=== PATIENT | male | born 1995 | race Caucasian/White ===

== ENCOUNTER 2024-02-10 15:50 | Emergency (ER) | payer OTHER ==
[2024-02-10 18:12] VITALS: TEMP 99.7
[2024-02-10 19:10] LABS: Absolute Neutrophil Ct (ANC) 9.36 x10^3/uL (1.78-5.38); BASOPHIL % 0.2 % (0.2-1.2); Basophil (Absolute #) 0.02 x10^3/uL (0.01-0.08); Eosinophil % 0.1 % (0.8-7.0); Eosinophil (Absolute #) 0.01 x10^3/uL (0.04-0.54); Hematocrit 47.9 % (40.1-51.0); Hemoglobin 15.7 g/dL (13.7-17.5); IMMATURE GRAN # 0.04 x10^3u/L (0.001-0.031); IMMATURE GRAN % 0.4 % (0.001-0.429); Lymphocyte (Absolute #) 0.47 x10^3/uL (1.32-3.57); Lymphocytes % 4.5 % (21.8-53.1); Mean Cell Volume 83.3 fL (79.0-92.2); Mean Corpuscular Hemoglobin 27.3 pg (25.7-32.2); Mean Corpuscular Hgb Concent. 32.8 g/dL (32.3-36.5); Mean Platelet Volume 9.9 fL (9.4-12.4); Monocyte (Absolute #) 0.53 x10^3/uL (0.30-0.82); Monocytes % 5.1 % (5.3-12.2); Neutrophil % 89.7 % (34.0-67.9); Platelet Count 231 x10^3/uL (163-337); Red Blood Count 5.75 x10^6/uL (4.63-6.08); Red Cell Distribution Width 13.2 % (11.6-14.4); White Blood Count 10.4 x10^3/uL (4.23-9.07)
[2024-02-10 19:23] LABS: ALBUMIN 4.7 g/dL (3.5-5.0); ANION GAP 12.4 MEQ/L (5-15); BILIRUBIN,TOTAL 1.1 mg/dL (0.2-1.3); Calcium 9.4 mg/dL (8.4-10.2); Creatinine 1 0.94 mg/dL (0.66-1.25); EST GLOMERULAR FILTRATION RATE 112.5 ML/MIN; Potassium 3.7 mmol/L (3.5-5.1)
--- NOTE | 2024-02-10 20:15 | ERPHSYRPT ---
- History of Present Illness Time Seen by Provider: 02/10/24 16:21 Source: patient Exam Limitations: no limitations Patient Subjective Stated Complaint: C/O Vomiting since early this am; unsure of exact time. Reports coffee ground emesis. Denies any pain. Denies any change in bowel habits; no BM today. Triage Nursing Assessment: Patient ambulated back to ER. He is alert and oriented. Flushed. Warm to touch. No SOB. NO cough. Lips are dry. RAMACHANDRAN WNL. No active vomiting during assessment. Physician History: Patient is a 29-year-old male with no significant past medical history presents to our ED for evaluation of generalized bodyaches nausea and vomiting. Symptoms started this morning at approximately 5 AM. Patient has been vomiting since his arrival at 2 PM. Patient complains of generalized abdominal pain. No trauma no fever no diarrhea no rash. No chest pain or shortness of breath. No diaphoresis. Patient reports seeing "coffee-ground emesis". Patient did not appear to be an extremis. He is resting comfortably. Father at bedside. They voiced no other complaints or concerns at this time. Portions of this note were created with voice recognition technology. There may be grammatical, spelling, punctuation or sound alike errors Timing/Duration: today Severity: moderate Modifying Factors: Improves With: nothing Associated Symptoms: denies symptoms Allergies/Adverse Reactions: No Known Drug Allergies Allergy (Verified 02/10/24 18:03) Home Medications: Secukinumab [Cosentyx Unoready Pen] 300 mg IM Q30D 02/10/24 [History] Hx Tetanus, Diphtheria Vaccination/Date Given: Yes Hx Influenza Vaccination/Date Given: No Immunizations Up to Date: Yes Travel Risk - International Travel Have you traveled outside of the country in past 3 weeks: No - Emerging Infectious Disease Are you exhibiting symptoms associated with any current EIDs: Yes Symptoms: Fever, Vomitting - Review of Systems Constitutional: No Symptoms, No Fever, No Chills Eyes: No Symptoms Ears, Nose, & Throat: No Symptoms Respiratory: No Symptoms, No Cough, No Dyspnea Cardiac: No Symptoms, No Chest Pain, No Edema, No Syncope Abdominal/Gastrointestinal: No Symptoms, No Abdominal Pain, No Nausea, No Vomiting, No Diarrhea Genitourinary Symptoms: No Symptoms, No Dysuria Musculoskeletal: No Symptoms, No Back Pain, No Neck Pain Skin: No Symptoms, No Rash Neurological: No Symptoms, No Dizziness, No Focal Weakness, No Sensory Changes Psychological: No Symptoms Endocrine: No Symptoms Hematologic/Lymphatic: No Symptoms Immunological/Allergic: No Symptoms All Other Systems: Reviewed and Negative - Past Medical History Pertinent Past Medical History: Yes Musculoskeletal History: Arthritis Other Medical History: psoriasis - Past Surgical History Past Surgical History: No - Social History Smoking Status: Never smoker Exposure to second hand smoke: No Drug Use: none - Social Determinants of Health Will the patient participate in the screening: Yes Do you worry about a steady place to live?: No Do you have any problems with any of the following?: No known problems In the past 12 months,have you had to go without utilities?: No Transportation Issues: No Has anyone in your support network made you feel unsafe?: No Have you or anyone in your house had to go without enough: No - Nursing Vital Signs Nursing Vital Signs: Initial Vital Signs Pulse Rate 112 H 02/10/24 18:02 Respiratory Rate 7 L 02/10/24 18:02 Blood Pressure 139/77 02/10/24 18:02 O2 Sat by Pulse Oximetry 100 02/10/24 18:02 Pain Scale Pain Intensity 0 - Physical Exam General Appearance: no apparent distress, alert Eye Exam: PERRL/EOMI, eyes nml inspection Ears, Nose, Throat Exam: normal ENT inspection, TMs normal, pharynx normal, moist mucous membranes Neck Exam: normal inspection, non-tender, supple, full range of motion Respiratory Exam: normal breath sounds, lungs clear, No respiratory distress Cardiovascular Exam: regular rate/rhythm, normal heart sounds, normal peripheral pulses Gastrointestinal/Abdomen Exam: soft, normal bowel sounds, tenderness (Epigastric tenderness to palpation), No mass Back Exam: normal inspection, normal range of motion, No CVA tenderness, No vertebral tenderness Extremity Exam: normal inspection, normal range of motion, pelvis stable Neurologic Exam: alert, oriented x 3, cooperative, normal mood/affect, sensation nml, No motor deficits Skin Exam: normal color, warm, dry, No rash Lymphatic Exam: No adenopathy SpO2 Interpretation: normal SpO2: 98 O2 Delivery: Room Air - Course Nursing assessment & vital signs reviewed: Yes - CT Exams Abdomen/Pelvis CT Interpretation: Tele-radiologist Report (No comps fatty liver otherwise negative abdomen pelvis) Ordered Tests: Active Orders 24 hr Category Date Time Status IV Insertion STAT Care 02/10/24 20:11 Active ABDOMEN AND PELVIS W/0 CONTRAS [CT] Stat Exams 02/10/24 20:12 Taken AMYLASE Stat Lab 02/10/24 19:07 Completed CBC W DIFF Stat Lab 02/10/24 19:07 Completed CMP Stat Lab 02/10/24 19:07 Completed LIPASE Stat Lab 02/10/24 19:07 Completed TROPONIN Q4H Lab 02/10/24 19:00 Completed TROPONIN Q4H Lab 02/11/24 02:45 Ordered TROPONIN Q4H Lab 02/11/24 06:45 Ordered Medication Summary Discontinued Medications Generic Name Dose Route Start Last Admin Trade Name Freq PRN Reason Stop Dose Admin Al Hydrox/Mg Hydrox/Simethicone Confirm 02/10/24 20:40 Mag Hydrox/Al Hydrox/Simeth 30 Ml Udcup Administered 02/10/24 20:41 Dose 30 ml .ROUTE .STK-MED ONE Sodium Chloride 1,000 mls @ 999 mls/hr 02/10/24 20:11 02/10/24 22:14 Sodium Chloride 0.9% 1000 Ml IV 02/10/24 21:11 Infused .Q1H1M STA Infusion Sodium Chloride Confirm 02/10/24 20:40 Sodium Chloride 0.9% 1000 Ml Administered 02/10/24 20:41 Dose 1,000 mls @ ud .ROUTE .STK-MED ONE Lidocaine HCl Confirm 02/10/24 20:40 Lidocaine Hcl 2% Viscous 15 Ml Udcup Administered 02/10/24 20:41 Dose 15 ml .ROUTE .STK-MED ONE Magnesium Hydroxide 45 ml 02/10/24 20:14 02/10/24 20:50 Mag Hydrx/Alum Hyd/Simeth/Lido 45 Ml Bottle PO 02/10/24 20:15 45 ml STAT ONE Administration Ondansetron HCl 4 mg 02/10/24 20:11 02/10/24 20:48 Ondansetron Hcl 4 Mg/2 Ml Vial IV 02/10/24 20:12 4 mg STAT ONE Administration Ondansetron HCl Confirm 02/10/24 20:39 Ondansetron Hcl 4 Mg/2 Ml Vial Administered 02/10/24 20:40 Dose 4 mg .ROUTE .STK-MED ONE Pantoprazole Sodium 40 mg 02/10/24 20:11 02/10/24 20:49 Pantoprazole 40 Mg Vial IV 02/10/24 20:12 40 mg STAT ONE Administration Pantoprazole Sodium Confirm 02/10/24 20:39 Pantoprazole 40 Mg Vial Administered 02/10/24 20:40 Dose 40 mg IV .STK-MED ONE Lab/Rad Data: Laboratory Result Diagrams 02/10/24 19:07 02/10/24 19:07 Laboratory Results 02/10/24 02/10/24 02/10/24 Range/Units 20:15 19:07 19:07 WBC 10.4 H (4.23-9.07) x10^3/uL RBC 5.75 (4.63-6.08) x10^6/uL Hgb 15.7 (13.7-17.5) g/dL Hct 47.9 (40.1-51.0) % MCV 83.3 (79.0-92.2) fL MCH 27.3 (25.7-32.2) pg MCHC 32.8 (32.3-36.5) g/dL RDW 13.2 (11.6-14.4) % Plt Count 231 (163-337) x10^3/uL MPV 9.9 (9.4-12.4) fL Gran % 89.7 H (34.0-67.9) % Immature Gran % (Auto) 0.4 (0.001-0.429) % Nucleat RBC Rel Count 0.0 (0.00-0.2) % Eos # (Auto) 0.01 L (0.04-0.54) x10^3/uL Immature Gran # (Auto) 0.04 H (0.001-0.031) x10^3u/L Absolute Lymphs (auto) 0.47 L (1.32-3.57) x10^3/uL Absolute Monos (auto) 0.53 (0.30-0.82) x10^3/uL Absolute Nucleated RBC 0.00 (0.00-0.012) x10^3u/L Lymphocytes % 4.5 L (21.8-53.1) % Monocytes % 5.1 L (5.3-12.2) % Eosinophils % 0.1 L (0.8-7.0) % Basophils % 0.2 (0.2-1.2) % Absolute Granulocytes 9.36 H (1.78-5.38) x10^3/uL Basophils # 0.02 (0.01-0.08) x10^3/uL Sodium 137 (135-145) mmol/L Potassium 3.7 (3.5-5.1) mmol/L Chloride 101 (98-107) mmol/L Carbon Dioxide 28 (22-30) mmol/L Anion Gap 12.4 (5-15) MEQ/L BUN 17 (9-20) mg/dL Creatinine 0.94 (0.66-1.25) mg/dL Estimated GFR 112.5 ML/MIN Glucose 103 (74-106) mg/dL Calcium 9.4 (8.4-10.2) mg/dL Total Bilirubin 1.10 (0.2-1.3) mg/dL AST 48 (17-59) U/L ALT 89 H (0-50) U/L Alkaline Phosphatase 52 (38-126) U/L Troponin I (0.000-0.033) ng/mL Serum Total Protein 8.0 (6.3-8.2) g/dL Albumin 4.7 (3.5-5.0) g/dL Amylase 59 (30-110) U/L Lipase 48 (23-300) U/L Influenza Type A Ag NEGATIVE (NEGATIVE) Influenza Type B Ag NEGATIVE (NEGATIVE) RSV (PCR) NEGATIVE (NEGATIVE) SARS-CoV-2 (PCR) NEGATIVE (NEGATIVE) 02/10/24 Range/Units 19:00 WBC (4.23-9.07) x10^3/uL RBC (4.63-6.08) x10^6/uL Hgb (13.7-17.5) g/dL Hct (40.1-51.0) % MCV (79.0-92.2) fL MCH (25.7-32.2) pg MCHC (32.3-36.5) g/dL RDW (11.6-14.4) % Plt Count (163-337) x10^3/uL MPV (9.4-12.4) fL Gran % (34.0-67.9) % Immature Gran % (Auto) (0.001-0.429) % Nucleat RBC Rel Count (0.00-0.2) % Eos # (Auto) (0.04-0.54) x10^3/uL Immature Gran # (Auto) (0.001-0.031) x10^3u/L Absolute Lymphs (auto) (1.32-3.57) x10^3/uL Absolute Monos (auto) (0.30-0.82) x10^3/uL Absolute Nucleated RBC (0.00-0.012) x10^3u/L Lymphocytes % (21.8-53.1) % Monocytes % (5.3-12.2) % Eosinophils % (0.8-7.0) % Basophils % (0.2-1.2) % Absolute Granulocytes (1.78-5.38) x10^3/uL Basophils # (0.01-0.08) x10^3/uL Sodium (135-145) mmol/L Potassium (3.5-5.1) mmol/L Chloride (98-107) mmol/L Carbon Dioxide (22-30) mmol/L Anion Gap (5-15) MEQ/L BUN (9-20) mg/dL Creatinine (0.66-1.25) mg/dL Estimated GFR ML/MIN Glucose (74-106) mg/dL Calcium (8.4-10.2) mg/dL Total Bilirubin (0.2-1.3) mg/dL AST (17-59) U/L ALT (0-50) U/L Alkaline Phosphatase (38-126) U/L Troponin I < 0.012 (0.000-0.033) ng/mL Serum Total Protein (6.3-8.2) g/dL Albumin (3.5-5.0) g/dL Amylase (30-110) U/L Lipase (23-300) U/L Influenza Type A Ag (NEGATIVE) Influenza Type B Ag (NEGATIVE) RSV (PCR) (NEGATIVE) SARS-CoV-2 (PCR) (NEGATIVE) - Progress Progress: improved Progress Note: Patient is a 29-year-old male presents to our ED for evaluation of nausea vomiting body aches and diffuse abdominal pain. Symptoms have been ongoing for a day. Physical exam reveals mild diffuse abdominal tenderness. Physical exam otherwise unremarkable. Laboratory workup essentially nonremarkable. CT abdomen pelvis essentially negative for acute intra-abdominal pathology. Patient received IV fluids Protonix GI cocktail Zofran. Patient reassessed he feels much better patient tolerating p.o. Father at bedside. Patient reports he is ready for discharge. We discussed bowel rest. They are requesting a school note. School note provided. Screening troponin negative. Prescription for Zofran forwarded to patient's pharmacy. They agree to follow-up with [facility] doctor within 48 hours for reevaluation. They voiced no other complaints or concerns at this time. Portions of this note were created with voice recognition technology. There may be grammatical, spelling, punctuation or sound alike errors 02/10/24 22:58 Complexity problem addressed is moderate acute complicated no critical care time. Complexity of data reviewed and analyzed is moderate. Test ordered chest reviewed results analyzed and correlated clinically with history and physical exam. Risk of complication and or risk of morbidity/mortality of patient management is moderate. A prescription for Zofran forwarded to patient's pharmacy. Vital stable. Time spent to discharge patient is approximately 20 minutes. Plan of care established for shared decision making. No social determinants of health present to impede follow-up. Portions of this note were created with voice recognition technology. There may be grammatical, spelling, punctuation or sound alike errors 02/10/24 23:04 Counseled pt/family regarding: lab results, diagnosis, need for follow-up, rad results - Departure Departure Disposition: Home Clinical Impression: Nausea and vomiting, Abdominal pain, Body aches Condition: Stable Critical Care Time: No Referrals: SHANELLE GROSS MD [Primary Care Provider] - Follow up/PCP as directed Additional Instructions: Discharge/Care Plan BEV MUHAMMAD was seen on 02/10/24 in the Emergency Room. The patient was counseled regarding Diagnosis,Lab results, Imaging studies, need for follow up and when to return to the Emergency Room. Prescriptions given: Discharge Note I have spoken with the patient and/or caregivers. I have explained the patient's condition, diagnosis and treatment plan based on the information available to me at this time. I have answered the patient's and/or caregiver's questions and addressed any concerns. The patient and/or caregivers have as good understanding of the patient's diagnosis, condition and treatment plan as can be expected at this point. The vital signs have been stable. The patient's condition is stable and appropriate for discharge from the emergency department. The patient will pursue further outpatient evaluation with the primary care physician or other designated or consulting physician as outlined in the discharge instructions. The patient and/or caregivers are agreeable to this plan of care and follow-up instructions have been explained in detail. The patient and/or caregivers have received these instruction. The patient/and or caregivers are aware that any significant change in condition or worsening of symptoms should prompt an immediate return to this or the closest emergency department or call 911. Forms: Work/School Release Form Prescriptions: Ondansetron ODT 4 MG [Zofran Odt 4 mg] 4 mg PO Q6H PRN PRN #10 tablet PRN Reason: Vomiting
[2024-02-10] MEDS ORDERED: Zofran 4 MG/2 ML VIAL ONE (20:39)
[2024-02-10] MEDS ORDERED: PROTONIX 40 MG IV IV ONE (20:39)
[2024-02-10] MEDS ORDERED: Sodium Chloride 0.9% 1000 ML 1,000 ML ONE (20:40)
[2024-02-10] MEDS ORDERED: MAALOX ES 30 ML UNIT DOSE ONE (20:40)
[2024-02-10] MEDS ORDERED: XYLOCAINE VISCOUS 2% 15 ML CUP ONE (20:40)
[2024-02-10] MEDS: Sodium Chloride 0.9% 1000 ML 1,000 ML IV STA (20:47)
[2024-02-10] MEDS: Zofran 4 MG/2 ML VIAL IV ONE (20:48)
[2024-02-10] MEDS: PROTONIX 40 MG IV IV ONE (20:49)
[2024-02-10] MEDS: GI COCKTAIL 45 ML (Maalox/Lidocaine) PO ONE (20:50)
[2024-02-10 20:55] LABS: INFLUENZA A NEGATIVE (NEGATIVE); INFLUENZA B NEGATIVE (NEGATIVE); RESPIRATORY SYNCTIAL VIRUS NEGATIVE (NEGATIVE); SARS-CoV-2 Xpert Express NEGATIVE (NEGATIVE)
[2024-02-10 22:12] VITALS: PULSE 103
[2024-02-10 22:35] VITALS: O2SAT 98
[2024-02-10 23:06] VITALS: RESP 20
[2024-02-10 23:19] VITALS: BP 104/74
--- NOTE | 2024-02-11 08:47 | XRAY ---
Indication: Pain. Coffee-ground emesis. Multiple contiguous axial images obtained through the abdomen and pelvis without contrast. Comparison: None Lung bases clear. Heart not enlarged. Noncontrasted stomach and bowel loops appear nonobstructed with normal appendix. Diffuse fatty liver. No free fluid/air. Remaining liver, gallbladder, pancreas, spleen, adrenal glands, kidneys, ureters, bladder, and aorta are unremarkable for noncontrast exam. Osseous structures intact with minimal L5-S1 degenerative disc osteophyte complex. Impression: Fatty liver and L5-S1 degenerative disc disease. Remaining CT abdomen/pelvis without contrast exam is negative.
== END 2024-02-10 23:15 | disposition home or self-care (01) ==
LOC: ED 15:50
DX: R11.2 Nausea with vomiting, unspecified (principal); R10.9 Unspecified abdominal pain
CPT/HCPCS: 0241U; 36415; 74176; 80053; 82150; 83690; 84484; 85025; 96360; 96374; 96375; 99284; J2405; A9270-GY